=== PATIENT | male | born 1975 | race African-American/Black ===

== ENCOUNTER 2018-02-26 07:52 | Inpatient (IN) | payer MEDICAID ==
[~2018-02-26] VITALS: Ht 162.6 cm; Wt 68.0 kg
[2018-02-26] MEDS ORDERED: GLUCOPHAGE500 MG PO (07:59)
[2018-02-26] MEDS ORDERED: MOBIC7.5 MG PO (07:59)
[2018-02-26] MEDS ORDERED: OMEPRAZOLE20 M1 PO (07:59)
[2018-02-26] MEDS ORDERED: NORVASC2.5 MG PO (08:00)
[2018-02-26 08:26] LABS: BASOPHILS 0.2 % (0-2); EOSINOPHILS 1.7 % (0-7); HEMATOCRIT 40.7 % (42.0-54.0); HEMOGLOBIN 13.5 g/dL (13.5-17.5); IMMATURE GRANULOCYTES 0.4 % (0-5); LYMPHOCYTES 11.6 % (15-50); MCH 28.1 pg (26.0-34.0); MCHC 33.2 g/dL (31.0-37.0); MCV 84.8 fL (80.0-100.0); MEAN PLATELET VOLUME 10.1 fL (7.4-10.4); MONOCYTES 7.5 % (2-11); NEUTROPHILS 78.6 % (40-80); PLATELET COUNT 220 10x3/uL (130-400)
[2018-02-26 08:51] LABS: ALBUMIN 3.6 g/dL (3.4-5.0); ALKALINE PHOSPHATASE 70 U/L (46-116); ALT (SGPT) 22 U/L (10-68); BILIRUBIN - TOTAL 0.34 mg/dL (0.2-1.3); CALC OSMOLALITY 280 mosm/kg (275-300); CALCIUM 9.2 mg/dL (8.5-10.1); CARBON DIOXIDE 25.7 mmol/L (21.0-32.0); CHLORIDE - SERUM 104 mmol/L (98-107); GLUCOSE 160 mg/dL (74-106); PROTEIN - SERUM 7.5 g/dL (6.4-8.2); SODIUM 140 mmol/L (136-145); UREA NITROGEN 11 mg/dL (7-18); eGFR NON AFRICAN AMERICAN 87 mL/min (90-120)
[2018-02-26 10:17] VITALS: BP 152/80
[2018-02-26 13:09] VITALS: BP 130/77
[2018-02-26 16:17] VITALS: BP 125/71
[2018-02-26] MEDS ORDERED: REMERON15 MG PO (17:14)
[2018-02-26 17:17] VITALS: BP 125/71; BMI 25.8
[2018-02-26 21:17] VITALS: BP 126/80
[2018-02-27 04:50] VITALS: BP 134/84
[2018-02-27 06:04] LABS: HEMATOCRIT 37.3 % (42.0-54.0); HEMOGLOBIN 12.2 g/dL (13.5-17.5); MCH 27.9 pg (26.0-34.0); MCHC 32.7 g/dL (31.0-37.0); MCV 85.2 fL (80.0-100.0); MEAN PLATELET VOLUME 10.6 fL (7.4-10.4); PLATELET COUNT 245 10x3/uL (130-400); RBC 4.38 10x6/uL (4.20-6.10); RDW 14.1 % (11.5-14.5); WBC 22.7 10x3/uL (4.8-10.8)
[2018-02-27 06:29] LABS: CALC OSMOLALITY 283 mosm/kg (275-300); CARBON DIOXIDE 28.1 mmol/L (21.0-32.0); CHLORIDE - SERUM 103 mmol/L (98-107); CREATININE - SERUM 0.9 mg/dL (0.6-1.3); GLUCOSE 189 mg/dL (74-106); POTASSIUM - SERUM 4.1 mmol/L (3.5-5.1); SODIUM 138 mmol/L (136-145); eGFR NON AFRICAN AMERICAN > 90 mL/min (90-120)
[2018-02-27 06:33] LABS: UREA NITROGEN 20 mg/dL (7-18)
[2018-02-27 07:26] LABS: LYMPHOCYTES 8 % (15-50); MONOCYTES 4 % (2-11); NEUTROPHILS 83 % (40-80); PLATELET ESTIMATE NORMAL
[2018-02-27 09:02] VITALS: Ht 162.6 cm; Wt 68.0 kg
[2018-02-27 09:27] VITALS: BP 124/72
[2018-02-27 16:59] VITALS: BP 165/94
[2018-02-27 22:37] VITALS: BP 180/92
[2018-02-28 04:06] VITALS: BP 184/94
[2018-02-28 06:43] LABS: CALCIUM 8.4 mg/dL (8.5-10.1); CARBON DIOXIDE 30.1 mmol/L (21.0-32.0); CHLORIDE - SERUM 104 mmol/L (98-107); CREATININE - SERUM 0.9 mg/dL (0.6-1.3); SODIUM 140 mmol/L (136-145); eGFR NON AFRICAN AMERICAN > 90 mL/min (90-120)
[2018-02-28 06:47] LABS: CALC OSMOLALITY 277 mosm/kg (275-300); GLUCOSE 86 mg/dL (74-106); POTASSIUM - SERUM 3.4 mmol/L (3.5-5.1); UREA NITROGEN 12 mg/dL (7-18)
[2018-02-28 07:09] LABS: BASOPHILS 0.2 % (0-2); EOSINOPHILS 0.8 % (0-7); HEMATOCRIT 38.5 % (42.0-54.0); HEMOGLOBIN 12.8 g/dL (13.5-17.5); IMMATURE GRANULOCYTES 0.4 % (0-5); LYMPHOCYTES 22.1 % (15-50); MCH 28.1 pg (26.0-34.0); MCHC 33.2 g/dL (31.0-37.0); MCV 84.6 fL (80.0-100.0); MEAN PLATELET VOLUME 10.7 fL (7.4-10.4); MONOCYTES 5.7 % (2-11); NEUTROPHILS 70.8 % (40-80); PLATELET COUNT 244 10x3/uL (130-400); RBC 4.55 10x6/uL (4.20-6.10); RDW 13.9 % (11.5-14.5); WBC 17.8 10x3/uL (4.8-10.8)
[2018-02-28 08:25] VITALS: BP 178/102
[2018-02-28 11:37] VITALS: BP 171/95
[2018-02-28 16:05] VITALS: BP 143/77
[2018-02-28 22:41] VITALS: BP 179/97
[2018-03-01 03:58] VITALS: BP 170/98
[2018-03-01 05:51] LABS: BASOPHILS 0.2 % (0-2); EOSINOPHILS 0.5 % (0-7); HEMATOCRIT 39.3 % (42.0-54.0); IMMATURE GRANULOCYTES 0.3 % (0-5); LYMPHOCYTES 17.8 % (15-50); MCH 28.1 pg (26.0-34.0); MCHC 33.1 g/dL (31.0-37.0); MCV 85.1 fL (80.0-100.0); MEAN PLATELET VOLUME 10.3 fL (7.4-10.4); MONOCYTES 7.8 % (2-11); NEUTROPHILS 73.4 % (40-80); PLATELET COUNT 236 10x3/uL (130-400); RBC 4.62 10x6/uL (4.20-6.10); RDW 13.7 % (11.5-14.5); WBC 18.2 10x3/uL (4.8-10.8)
[2018-03-01 06:08] LABS: CALC OSMOLALITY 274 mosm/kg (275-300); CALCIUM 8.8 mg/dL (8.5-10.1); CARBON DIOXIDE 29.4 mmol/L (21.0-32.0); CHLORIDE - SERUM 102 mmol/L (98-107); CREATININE - SERUM 0.8 mg/dL (0.6-1.3); POTASSIUM - SERUM 3.4 mmol/L (3.5-5.1); SODIUM 137 mmol/L (136-145); UREA NITROGEN 9 mg/dL (7-18); eGFR NON AFRICAN AMERICAN > 90 mL/min (90-120)
[2018-03-01 06:11] LABS: GLUCOSE 130 mg/dL (74-106)
[2018-03-01 08:12] VITALS: BP 143/70
[2018-03-01 12:43] VITALS: BP 143/91
[2018-03-01 21:29] VITALS: BP 165/97
[2018-03-01 23:47] VITALS: BP 158/98
[2018-03-02 06:53] LABS: BASOPHILS 0.2 % (0-2); HEMATOCRIT 38.8 % (42.0-54.0); HEMOGLOBIN 13.1 g/dL (13.5-17.5); IMMATURE GRANULOCYTES 0.4 % (0-5); LYMPHOCYTES 22.6 % (15-50); MCH 28.8 pg (26.0-34.0); MCHC 33.8 g/dL (31.0-37.0); MCV 85.3 fL (80.0-100.0); MEAN PLATELET VOLUME 9.9 fL (7.4-10.4); MONOCYTES 5.5 % (2-11); NEUTROPHILS 69.3 % (40-80); PLATELET COUNT 231 10x3/uL (130-400); RBC 4.55 10x6/uL (4.20-6.10); RDW 13.5 % (11.5-14.5)
[2018-03-02 06:56] LABS: WBC 10.8 10x3/uL (4.8-10.8)
[2018-03-02 07:12] LABS: CALC OSMOLALITY 281 mosm/kg (275-300); CALCIUM 8.9 mg/dL (8.5-10.1); CARBON DIOXIDE 29.6 mmol/L (21.0-32.0); CHLORIDE - SERUM 104 mmol/L (98-107); CREATININE - SERUM 0.7 mg/dL (0.6-1.3); GLUCOSE 85 mg/dL (74-106); POTASSIUM - SERUM 3.9 mmol/L (3.5-5.1); SODIUM 142 mmol/L (136-145); UREA NITROGEN 13 mg/dL (7-18); eGFR NON AFRICAN AMERICAN > 90 mL/min (90-120)
[2018-03-02 07:58] VITALS: BP 160/95
[2018-03-02 12:23] VITALS: BP 152/88
[2018-03-02 16:01] VITALS: BP 132/83
[2018-03-02] MEDS ORDERED: DOXYCYCLINE HY100 M2 PO (18:05)
[2018-03-02 20:13] VITALS: BP 138/87
== END 2018-03-02 22:16 | disposition home or self-care (01) | DRG 122 ==
LOC: D.ER 07:52 → D.EDHOLD 08:22 → D.MS 08:22
PROVIDERS: Emergency Medicine; Family Medicine
DX: H05.012 Cellulitis of left orbit (principal); K04.7 Periapical abscess without sinus; K02.9 Dental caries, unspecified; E11.9 Type 2 diabetes mellitus without complications; F17.200 Nicotine dependence, unspecified, uncomplicated

== ENCOUNTER 2019-03-17 11:56 | Emergency (ER) | payer MEDICAID ==
[~2019-03-17] VITALS: Ht 162.6 cm; Wt 75.0 kg
[~2019-03-17 11:56] MED LIST: DOXYCYCLINE HY100 M2 PO; GLUCOPHAGE500 MG PO; MOBIC7.5 MG PO; NORVASC2.5 MG PO; OMEPRAZOLE20 M1 PO; REMERON15 MG PO
[2019-03-17 12:48] VITALS: Ht 162.6 cm; Wt 75.0 kg
[2019-03-17] MEDS ORDERED: SEROQUEL200 MG PO (12:50)
[2019-03-17] MEDS ORDERED: CLEOCIN HCL300 MG PO (15:36)
[2019-03-17] MEDS ORDERED: TORADOL10 MG PO (15:36)
[2019-03-17 16:00] VITALS: BP 141/92
== END 2019-03-17 15:57 | disposition home or self-care (01) ==
LOC: D.ER 11:56
DX: K04.7 Periapical abscess without sinus (principal); S02.5XXA Fracture of tooth (traumatic), initial encounter for closed fracture; X58.XXXA Exposure to other specified factors, initial encounter; E11.9 Type 2 diabetes mellitus without complications; F17.210 Nicotine dependence, cigarettes, uncomplicated